=== PATIENT | male | born 1980 | race Caucasian/White ===

== ENCOUNTER 2020-09-15 06:32 | Day surgery (SDC) | payer OTHER ==
[~2020-09-15] VITALS: Ht 168 cm; Wt 97.6 kg
[2020-09-15] VITALS (7 sets, daily range): BP systolic 97–137; BP diastolic 48–80
[~2020-09-15 06:32] MED LIST: AMIT-189 PO; cefazolin/dext.iso 2gm/100ml IV ONE; famotidine 20mg tablet PO ONE; ringers solution, lacted 1,000 ML IV SCH; vancomycin 1,500 MG in NS 300ml IV soln IV ONE
[2020-09-15] MEDS ORDERED: labetalol 20mg/4ml (5mg/ml) syringe IV PRN (08:40)
[2020-09-15] MEDS ORDERED: morphine 4 MG/ML inj SYRINge IV PRN ×2 (08:40→08:55)
[2020-09-15] MEDS ORDERED: ringers solution, lacted 1,000 ML IV SCH (08:40)
[2020-09-15] MEDS ORDERED: morphine 2 MG/ML inj. syringe IV PRN (08:40)
[2020-09-15] MEDS ORDERED: fentaNYL/PF 50MCG/1 ML 2ML syringe IV PRN ×2 (08:40)
[2020-09-15] MEDS ORDERED: hydrALAZINE 20mg/ml inj. IV PRN (08:40)
[2020-09-15] MEDS ORDERED: ondansetron/PF 4mg/2ml inj IV PRN (08:40)
[2020-09-15] MEDS ORDERED: fentaNYL/PF 50MCG/1 ML 2ML syringe ONE (11:04)
[2020-09-15] MEDS ORDERED: ROPIVAcaine 0.5% (5mg/ml) 30ml vial ONE (11:05)
[2020-09-15] MEDS ORDERED: BUPIVAcaine/PF 2.5 mg/ml (0.25%) 30ml vial ONE (11:05)
[2020-09-15] MEDS ORDERED: propofol inj 20 ML IV ONE (11:36)
[2020-09-15] MEDS ORDERED: LIDOcaine 2% (20mg/ml) 5ml vial ONE (11:36)
[2020-09-15] MEDS ORDERED: ondansetron/PF 4mg/2ml inj ONE (11:36)
--- NOTE | 2020-09-15 12:00 | NUR ---
ADMITTED TO PACU FROM OR ACCOMPANIED BY ANESTHESIA. INTIAL PHYSICAL ASSESSMENT DONE AND RECORDED. REPORT RECEIVED FROM ANESTHESIA. SURGICAL PROCEDURE NOT PERFORMED. OBSERVATION FOR EMERGENCE FROM ANESTHESIA
[2020-09-15] MEDS ORDERED: HYDROcodone/acetaminophen 10/325mg tab PO ONE (12:40)
[2020-09-15] MEDS ORDERED: HYDROcodone/acetaminophen 10/325mg tab PO PRN (12:53)
--- NOTE | 2020-09-15 13:30 | NUR ---
DISCHARGE CRITERIA MET, DISCHARGE INSTRUCTIONS GIVEN TO GUARDS, PT AWAKE AND ORIENTED, C/O SHOULDER PAIN MEDICATED PRIOR TO DISCHARGE. PT IS TO RETURN WHEN SURGERY IS RESCHEDULED.
== END 2020-09-15 13:00 | disposition home or self-care (01) ==
LOC: PAS 06:32 → EEVIPCON 10:00 → PAS 13:00
PROVIDERS: ATTEND Orthopaedic Surgery
DX: M24.412 Recurrent dislocation, left shoulder (principal); Z53.8 Procedure and treatment not carried out for other reasons; F41.9 Anxiety disorder, unspecified; F32.9 Major depressive disorder, single episode, unspecified; G89.18 Other acute postprocedural pain; Z79.899 Other long term (current) drug therapy
CPT/HCPCS: 23455; 64415; 76942; 82948; 93005; J2001; J2270; J2405; J2704; J3010; J3370; J3490; J7040; A4215; A4618; A7000; J2795; J7120

== ENCOUNTER 2020-09-22 07:20 | Day surgery (SDC) | payer OTHER ==
[2020-09-22] VITALS (18 sets, daily range): BP systolic 105–145; BP diastolic 63–99
[~2020-09-22] VITALS: Ht 160 cm; Wt 95.7 kg
[2020-09-22 09:39] LABS: ALBUMIN 3.7 G/DL (3.4-5.0); ALBUMIN/GLOBULIN RATIO 1.1 (1.1-1.5); ALKALINE PHOSPHATASE 77 IU/L (46-116); BLOOD UREA NITROGEN 11 MG/DL (7-18); CALCIUM 8.8 MG/DL (8.5-10.1); CHLORIDE 105 MMOL/L (99-107); CREATININE 0.92 MG/DL (0.60-1.10); PRE OP ALT 18 U/L (30-65); PRE OP ANION GAP 6 (8-16); PRE OP AST 19 U/L (10-37); PRE OP BILIRUB, TOTAL 1.9 MG/DL (0.0-1.0); PRE OP GLUCOSE 102 MG/DL (70-104); PRE OP SODIUM 140 MMOL/L (135-145); TOTAL CARBON DIOXIDE 28.9 MMOL/L (24-32); TOTAL PROTEIN 7.2 G/DL (6.4-8.2); eGFR > 90 ML/MIN
[2020-09-22] MEDS ORDERED: proCHLORperazine 10 MG/2 ml inj IV PRN ×2 (10:55→17:05)
[2020-09-22] MEDS ORDERED: meperidine/PF 25mg/ml syringe IV PRN ×5 (10:55→17:05)
[2020-09-22] MEDS ORDERED: ondansetron/PF 4mg/2ml inj IV PRN ×2 (10:55→17:05)
[2020-09-22] MEDS ORDERED: hydrALAZINE 20mg/ml inj. IV PRN (10:55)
[2020-09-22] MEDS ORDERED: morphine 4 MG/ML inj SYRINge IV PRN ×2 (10:55→17:05)
[2020-09-22] MEDS ORDERED: morphine 2 MG/ML inj. syringe IV PRN ×2 (10:55→17:05)
[2020-09-22] MEDS ORDERED: ringers solution, lacted 1,000 ML IV SCH ×2 (10:55→17:05)
[2020-09-22] MEDS ORDERED: acetaminophen 1,000mg/100ml IV 100 ML IV PRN (10:55)
[2020-09-22] MEDS ORDERED: labetalol 20mg/4ml (5mg/ml) syringe IV PRN ×2 (10:55→11:05)
[2020-09-22] MEDS ORDERED: morphine 10mg/ml inj. IV PRN (11:50)
[2020-09-22] MEDS ORDERED: BUPIVAcaine/PF 2.5 mg/ml (0.25%) 30ml vial ONE (14:44)
[2020-09-22] MEDS ORDERED: fentaNYL/PF 50MCG/1 ML 2ML syringe ONE ×3 (16:22→17:21)
[2020-09-22] MEDS ORDERED: midazolam 1 mg/ML 2ml injection ONE (16:23)
[2020-09-22] MEDS ORDERED: propofol inj 20 ML IV ONE (18:05)
[2020-09-22] MEDS ORDERED: dexamethasone sod phosphate 4mg/ml inj. ONE (18:05)
[2020-09-22] MEDS ORDERED: ondansetron/PF 4mg/2ml inj ONE (18:05)
[2020-09-22] MEDS ORDERED: LIDOcaine 2% (20mg/ml) 5ml vial ONE (18:05)
[2020-09-22] MEDS ORDERED: ROPIVAcaine 0.5% (5mg/ml) 30ml vial ONE ×2 (18:05→21:19)
[2020-09-22] MEDS ORDERED: acetaminophen 1,000mg/100ml IV 100 ML IV ONE (18:20)
[2020-09-22] MEDS ORDERED: vancomycin 1,000mg inj ONE (19:15)
--- NOTE | 2020-09-22 19:33 | NUR ---
Received from OR via , accompanied by Anesthesiologist DR BROWN and report given by Anesthesiolgist. PT PRESENTS WITH A 20G PIV IN RIGHT HAND, WITH OPEN REPAIR BANKART LEFT SHOULDER. PT DRESING DRY AND INTACT WITH SHOULDER IMOBLILIZER IN PLACE. Addendum: 09/22/20 at 1945 by Estela Amaral RN, RN Amended: Links added.
[2020-09-22] MEDS: meperidine/PF 25mg/ml syringe IV PRN ×2 (19:58→20:09)
--- NOTE | 2020-09-22 20:50 | NUR ---
DR BROWN CALLED, PT REQUESTING A NEW SHOULDER BLOCK. DR DICK AGREES TO COME IN TO DRE PT. Addendum: 09/22/20 at 2122 by Estela Amaral RN, RN Amended: Links added.
--- NOTE | 2020-09-22 21:22 | NUR ---
DR BROWN AT [facility] EVALAUTING PT. Addendum: 09/22/20 at 2123 by Estela Amaral RN RN Amended: Links added.
--- NOTE | 2020-09-22 22:13 | NUR ---
PATIENT A&OX4, DENIES PAIN, V/S WNL, SCD OFF, 20G TO RUE D/C, LEFT SHOULDER DRESSING CDI W/ SLING. ICE AND ELEVATED RUE. I HAVE REVIEWED D/C INSTRUCTIONS WITH PATIENT And HE haS verbalized understanding. patient d/c TO RETIREMENT with all belongings and GUARDS gave transport.
== END 2020-09-22 22:13 ==
LOC: PAS 07:20 → EEVIPCON 12:15 → PAS 22:13
PROVIDERS: ATTEND Orthopaedic Surgery
DX: M25.312 Other instability, left shoulder (principal); F32.9 Major depressive disorder, single episode, unspecified; F41.9 Anxiety disorder, unspecified; G89.18 Other acute postprocedural pain; Z79.899 Other long term (current) drug therapy
CPT/HCPCS: 23462; 36415; 64415; 76942; 80053; A6402; C1713; J0131; J1100; J2001; J2175; J2250; J2270; J2405; J2704; J3010; J3370; J3490; J7040; J7120; A4565; A4618; A7000; J2795

== ENCOUNTER → 2021-07-20 | Day surgery (SDC) | payer OTHER ==
[2021-07-20] VITALS (14 sets, daily range): BP systolic 99–134; BP diastolic 57–99
[~2021-07-20] VITALS: Ht 168 cm; Wt 91.2 kg
[~2021-07-20] MED LIST changes: +ACET-1059 PO; +LIDOcaine 1%/PF 5ML 10 MG/ML VIAL ONE; +LIDOcaine 2% (20mg/ml) 5ml vial ONE; +ROPIVAcaine 0.5% (5mg/ml) 30ml vial ONE; +acetaminophen 1,000mg/100ml IV 100 ML IV PRN; -cefazolin/dext.iso 2gm/100ml IV ONE; +cefazolin/dext.iso 2gm/50ml IV ONE; +cloNIDine hcl/PF 100mcg/ml inj ONE; +dexamethasone sod phosphate 4mg/ml inj. ONE; +fentaNYL /PF 50mcg/ml 5ml ampule ONE; +hydrALAZINE 20mg/ml inj. IV PRN; +labetalol 20mg/4ml (5mg/ml) syringe IV PRN; +meperidine/PF 25mg/ml syringe IV PRN; +midazolam 1 mg/ML 2ml injection ONE; +morphine 2 MG/ML inj. syringe IV PRN; +morphine 4 MG/ML inj SYRINge IV PRN; +ondansetron/PF 4mg/2ml inj IV PRN; +ondansetron/PF 4mg/2ml inj ONE; +proCHLORperazine 10 MG/2 ml inj IV PRN; +propofol inj 20 ML IV ONE; +vancomycin 1,000mg inj ONE
--- NOTE | 2021-07-20 08:35 | NUR ---
CMS INTACT, BILATERAL PEDAL AND RADIAL PULSES STRONG AND PALPABLE. Addendum: 07/20/21 at 1026 by Patricia Neumann RN Amended: Links added.
--- NOTE | 2021-07-20 12:50 | NUR ---
PT ARRIVED TO VIA GURNEY, ACCOMPAINED BY -ANESTHESIA REPORT GIVEN, PT DROWSY, VSS, DENIES PAIN, PULSES PRESENT BUE, SLING IN PLACE, [facility]-CDI, SCDS ON,
[2021-07-20] MEDS: meperidine/PF 25mg/ml syringe IV PRN ×2 (13:14→13:37)
--- NOTE | 2021-07-20 14:56 | NUR ---
PATIENT MEETS DISCHARGE CRITERIA. IV DC'D NO COMPLICATIONS. SLING ON LEFT SHOULDER, EDUCATED TO KEEP ON X THREE WEEKS CONT.BELONGINGS SENT WITH GUARDS. Addendum: 07/20/21 at 1528 by Pauline Nunez RN Amended: Links added.
== END | disposition home or self-care (01) ==
LOC: PAS 08:19 → EEVIPCON 10:00
PROVIDERS: ATTEND Orthopaedic Surgery
DX: T84.84XA Pain due to internal orthopedic prosthetic devices, implants and grafts, initial encounter (principal); F41.9 Anxiety disorder, unspecified; G89.18 Other acute postprocedural pain; Z79.899 Other long term (current) drug therapy; Y83.8 Other surgical procedures as the cause of abnormal reaction of the patient, or of later complication, without mention of misadventure at the time of the procedure; Y92.89 Other specified places as the place of occurrence of the external cause
CPT/HCPCS: 20680; 64415; 76000; 76942; 82948; J0131; J0735; J1100; J2175; J2250; J2270; J2405; J2704; J2795; J3010; J3370; J3490; J7030; J7040; J7120; Z7506; Z7508; Z7512; A4215; A4565; A4618; A7000